=== PATIENT | male | born 1945 | race Caucasian/White ===

== ENCOUNTER 2021-02-25 11:20 | Emergency (ER) | payer OTHER ==
--- NOTE | 2021-02-25 13:13 | RAD REPORT ---
EXAM DESCRIPTION: RAD - Chest Single View - 02/25/2021 12:54 pm CLINICAL HISTORY: CHEST PAIN COMPARISON: No comparisons FINDINGS: Lines: Left upper chest wall pacemaker. Lungs: No evidence of edema or pneumonia. Pleural: No significant pleural effusions or pneumothorax. Cardiac: Moderate Cardiomegaly. Bones: No acute fractures. Other: ACDF in the cervical spine. IMPRESSION: No acute cardiopulmonary disease. Moderate cardiomegaly .
[2021-02-25 13:20] LABS: Protime INR 1.75
[2021-02-25 13:22] LABS: Absolute Lymphocytes (CBC) 1.4 K/uL (0.7-4.9); Hematocrit 33.9 % (39.6-49.0); Lymphocytes % 28.7 % (15.3-44.8); MPV 8.3 fL (7.6-11.3)
[2021-02-25 13:35] LABS: ALT/SGPT 14 U/L (12-78); AST/SGOT 9 U/L (15-37); Albumin 3.4 g/dL (3.4-5.0); Alkaline Phosphatase 133 U/L (45-117); BUN Blood Urea Nitrogen 37 mg/dL (7-18); Bicarbonate 28 mmol/L (21-32); Bilirubin Direct 0.2 mg/dL (0-0.2); Bilirubin Total 0.5 mg/dL (0.2-1.0); Glucose Level 219 mg/dL (74-106); Magnesium 1.6 mg/dL (1.8-2.4); NT PRO-BNP 426 pg/mL (<450); Potassium 4.7 mmol/L (3.5-5.1); Protein, Total 6.5 g/dL (6.4-8.2); Sodium Level 137 mmol/L (136-145); Troponin (Emerg Dept Use Only) < 0.02 ng/mL (0.0-0.045)
--- NOTE | 2021-02-25 16:44 | ER ---
Nurse's Notes [facility] Name: Eloy Gonzalez Age: 75 yrs Sex: Male : 1945 Arrival Date: 02/25/2021 Time: 11:23 Bed 12 Private MD: Loly Saez Diagnosis: Weakness;Muscle weakness (generalized);Other malaise and fatigue;SARS-associated coronavirus as the cause of diseases classified elsewhere Presentation: 02/25 11:40 Chief complaint: Patient states: Dr. Huston at [facility] sent me here tw2 because they didn't like my blood pressure today. i have been feeling bad for 2 or 3 days. no energy. just want to sleep. Coronavirus screen: fatigue, Client presents with at least one sign or symptom that may indicate coronavirus-19. Standard/surgical mask placed on the client. Provider contacted for isolation considerations. Ebola Screen: Patient denies travel to an Ebola-affected area in the 21 days before illness onset. Initial Sepsis Screen: Does the patient meet any 2 criteria? No. Patient's initial sepsis screen is negative. Does the patient have a suspected source of infection? No. Patient's initial sepsis screen is negative. Risk Assessment: Do you want to hurt yourself or someone else? Patient reports no desire to harm self or others. Onset of symptoms was February 25, 2021. 11:40 Method Of Arrival: Ambulatory tw2 11:45 Acuity: HAZEL 3 tw2 Triage Assessment: 11:44 General: Appears in no apparent distress. obese, Behavior is calm, cooperative, tw2 appropriate for age. Pain: Denies pain. Historical: - Allergies: 11:42 No Known Allergies; tw2 - PSHx: 11:42 back surgery; bypass; neck surgery; Appendectomy; Cholecystectomy; hernia repair; tw2 11:45 pacemaker; tw2 - Immunization history:: Client reports receiving the 2nd dose of the Covid vaccine. - Social history:: Smoking status: . Screenin:10 Abuse screen: Denies threats or abuse. Denies injuries from another. Nutritional ld1 screening: No deficits noted. On. Tuberculosis screening: No symptoms or risk factors identified. Fall Risk None identified. Assessment: 12:10 General: Appears in no apparent distress. comfortable, Behavior is calm, cooperative, ld1 appropriate for age. Pain: Denies pain. Neuro: Level of Consciousness is awake, alert, obeys commands, Oriented to person, place, time, situation, Appropriate for age. Cardiovascular: Capillary refill < 3 seconds Patient's skin is warm and dry. Respiratory: Airway is patent Respiratory effort is even, unlabored, Respiratory pattern is regular, symmetrical. GI: Abdomen is round non-distended. : No signs and/or symptoms were reported regarding the genitourinary system. Reports stage 4 kidney disease. EENT: No signs and/or symptoms were reported regarding the EENT system. Derm: No signs and/or symptoms reported regarding the dermatologic system. Musculoskeletal: No signs and/or symptoms reported regarding the musculoskeletal system. 13:30 Reassessment: Patient appears in no apparent distress at this time. Patient is alert, ld1 oriented x 3, equal unlabored respirations, skin warm/dry/pink. Patient denies pain at this time. 14:51 Reassessment: Patient appears in no apparent distress at this time. No changes from ld1 previously documented assessment. Patient and/or family updated on plan of care and expected duration. Pain level reassessed. Patient is alert, oriented x 3, equal unlabored respirations, skin warm/dry/pink. Patient denies pain at this time. 16:02 Reassessment: Patient appears in no apparent distress at this time. No changes from ld1 previously documented assessment. Patient and/or family updated on plan of care and expected duration. Pain level reassessed. Patient is alert, oriented x 3, equal unlabored respirations, skin warm/dry/pink. 17:21 Reassessment: Patient appears in no apparent distress at this time. No changes from ld1 previously documented assessment. Patient and/or family updated on plan of care and expected duration. Pain level reassessed. Patient is alert, oriented x 3, equal unlabored respirations, skin warm/dry/pink. Vital Signs: 11:44 BP 119 / 66; Pulse 87; Resp 18; Temp 97.7(TE); Pulse Ox 97% on R/A; Weight 104.33 kg tw2 (R); 12:10 BP 129 / 71; Pulse 68; Resp 18; Pulse Ox 96% on R/A; Pain 0/10; ld1 13:30 BP 111 / 62; Pulse 62; Resp 18; Pulse Ox 97% on R/A; Pain 0/10; ld1 15:01 BP 128 / 79; Pulse 61; Resp 16; Pulse Ox 100% on R/A; Pain 0/10; ld1 16:02 BP 123 / 75; Pulse 59; Resp 18; Pulse Ox 100% on R/A; ld1 ED Course: 11:23 Patient arrived in ED. as 11:23 Se Salcido is Private Physician. as 11:23 Loly Saez is Private Physician. as 11:43 Arm band placed on right wrist. Patient placed in waiting room. tw2 11:45 Triage completed. tw2 12:07 Al Dorman MD is Attending Physician. kdr 12:10 Patient has correct armband on for positive identification. Bed in low position. Call ld1 light in reach. Side rails up X2. school lunch monitor on. Pulse ox on. NIBP on. Door closed. Noise minimized. Warm blanket given. 12:10 No provider procedures requiring assistance completed. ld1 12:54 XRAY Chest (1 view) In Process Unspecified. EDMS 13:00 Inserted saline lock: 20 gauge in left antecubital area, using aseptic technique. Blood kj1 collected. 13:05 Initial lab(s) drawn, by wi, sent to lab. kj1 16:42 Loly Saez is Referral Physician. kdr 17:21 IV discontinued, intact, bleeding controlled, No redness/swelling at site. ld1 Administered Medications: No medications were administered Outcome: 16:43 Discharge ordered by . kdr 17:21 Discharged to home ambulatory. ld1 17:21 Condition: stable 17:21 Discharge instructions given to patient, family, Instructed on discharge instructions, follow up and referral plans. Demonstrated understanding of instructions, follow-up care. 17:21 Patient left the ED. ld1 Signatures: Dispatcher [employer] EDMS Al Dorman MD MD kdr Eliane Yu as Padmini Doe, RN RN 2 [place] Martinez kj1 Kristin Joyce, PRECIOUS RN ld1 Corrections: (The following items were deleted from the chart) 13:19 13:05 CORONAVIRUS+MR.LAB.BRZ drawn and sent. kj1 EDMS 13:19 13:00 CORONAVIRUS+MR.LAB.BRZ drawn and sent. kj1 EDMS
--- NOTE | 2021-02-25 16:45 | EDPHYS ---
Physician Documentation [facility] Name: Eloy Gonzalez Age: 75 yrs Sex: Male : 1945 Arrival Date: 02/25/2021 Time: 11:23 Bed 12 Private MD: Loly Saez ED Physician Al Dorman HPI: 02/26 08:29 This 75 yrs old Male presents to ER via Ambulatory with complaints of Blood kdr Pressure Problem - low. 08:29 Patient states he has had general malaise for last few days he has had some changes in kdr his sense of taste and smell. He went to an urgent care prior to his arrival here was noted to be hypotensive. He has no other focal complaints. He is awake alert and appropriate.. Onset: The symptoms/episode began/occurred gradually, 3 day(s) ago. Severity of symptoms: At their worst the symptoms were mild in the emergency department the symptoms are unchanged. The patient has not experienced similar symptoms in the past. The patient has been recently seen by a physician: Patient was seen by nurse practitioner prior to arrival in the ED.. Historical: - Allergies: 02/25 11:42 No Known Allergies; tw2 - PSHx: 11:42 back surgery; bypass; neck surgery; Appendectomy; Cholecystectomy; hernia repair; tw2 11:45 pacemaker; tw2 - Immunization history:: Client reports receiving the 2nd dose of the Covid vaccine. - Social history:: Smoking status: . ROS: 02/26 08:29 Constitutional: Negative for fever, chills, and weight loss, only general malaise and kdr altered sense of smell and taste Eyes: Negative for injury, pain, redness, and discharge, ENT: Negative for injury, pain, and discharge, Neck: Negative for injury, pain, and swelling, Cardiovascular: Negative for chest pain, palpitations, and edema, Respiratory: Negative for shortness of breath, cough, wheezing, and pleuritic chest pain, Abdomen/GI: Negative for abdominal pain, nausea, vomiting, diarrhea, and constipation, Back: Negative for injury and pain, : Negative for injury, bleeding, discharge, and swelling, MS/Extremity: Negative for injury and deformity, Skin: Negative for injury, rash, and discoloration, Neuro: Negative for headache, weakness, numbness, tingling, and seizure activity. Psych: Negative for depression, anxiety, suicide ideation, homicidal ideation, and hallucinations, Allergy/Immunology: Negative for hives, rash, and allergies, Endocrine: Negative for neck swelling, polydipsia, polyuria, polyphagia, and marked weight changes, Hematologic/Lymphatic: Negative for swollen nodes, abnormal bleeding, and unusual bruising. Exam: 08:29 Constitutional: This is a well developed, well nourished patient who is awake, alert, kdr and in no acute distress. Head/Face: Normocephalic, atraumatic. Eyes: Pupils equal round and reactive to light, extra-ocular motions intact. Lids and lashes normal. Conjunctiva and sclera are non-icteric and not injected. Cornea within normal limits. Periorbital areas with no swelling, redness, or edema. Neck: Trachea midline, no thyromegaly or masses palpated, and no cervical lymphadenopathy. Supple, full range of motion without nuchal rigidity, or vertebral point tenderness. No Meningismus. Chest/axilla: Normal chest wall appearance and motion. Nontender with no deformity. No lesions are appreciated. Cardiovascular: Regular rate and rhythm with a normal S1 and S2. No gallops, murmurs, or rubs. Normal PMI, no JVD. No pulse deficits. Respiratory: Lungs have equal breath sounds bilaterally, clear to auscultation and percussion. No rales, rhonchi or wheezes noted. No increased work of breathing, no retractions or nasal flaring. Abdomen/GI: Soft, non-tender, with normal bowel sounds. No distension or tympany. No guarding or rebound. No evidence of tenderness throughout. Back: No spinal tenderness. No costovertebral tenderness. Full range of motion. Skin: Warm, dry with normal turgor. Normal color with no rashes, no lesions, and no evidence of cellulitis. MS/ Extremity: Pulses equal, no cyanosis. Neurovascular intact. Full, normal range of motion. Neuro: Awake and alert, GCS 15, oriented to person, place, time, and situation. Cranial nerves II-XII grossly intact. Motor strength 5/5 in all extremities. Sensory grossly intact. Cerebellar exam normal. Normal gait. Psych: Awake, alert, with orientation to person, place and time. Behavior, mood, and affect are within normal limits. Vital Signs: 02/25 11:44 BP 119 / 66; Pulse 87; Resp 18; Temp 97.7(TE); Pulse Ox 97% on R/A; Weight 104.33 kg tw2 (R); 12:10 BP 129 / 71; Pulse 68; Resp 18; Pulse Ox 96% on R/A; Pain 0/10; ld1 13:30 BP 111 / 62; Pulse 62; Resp 18; Pulse Ox 97% on R/A; Pain 0/10; ld1 15:01 BP 128 / 79; Pulse 61; Resp 16; Pulse Ox 100% on R/A; Pain 0/10; ld1 16:02 BP 123 / 75; Pulse 59; Resp 18; Pulse Ox 100% on R/A; ld1 MDM: 16:43 Patient medically screened. kdr 02/26 08:29 Data reviewed: vital signs, nurses notes, lab test result(s), EKG, radiologic studies. kdr Counseling: I had a detailed discussion with the patient and/or guardian regarding: the historical points, exam findings, and any diagnostic results supporting the discharge/admit diagnosis, lab results, the need for outpatient follow up. Special discussion: I discussed with the patient/guardian in detail that at this point there is no indication for admission to the hospital. It is understood, however, that if the symptoms persist or worsen the patient needs to return immediately for re-evaluation. ED course: Patient remained stable in the emergency department. He did not appear toxic at any time and was otherwise stable. His blood pressure was within normal limits and not requiring any intervention. As can be seen from his laboratory evaluation, he was Covid positive. This would account for his symptoms. Patient was discharged in stable condition was happy with the care provided and the plan for discharge and follow-up.. 02/25 12:07 Order name: Basic Metabolic Panel; Complete Time: 15:13 kdr 02/25 12:07 Order name: CBC with Diff; Complete Time: 15:13 kdr 02/25 12:07 Order name: LFT's; Complete Time: 15:13 kdr 02/25 12:07 Order name: Magnesium; Complete Time: 15:13 kdr 02/25 12:07 Order name: NT PRO-BNP; Complete Time: 15:13 kdr 02/25 12:07 Order name: PT-INR; Complete Time: 15:13 kdr 02/25 12:07 Order name: Troponin (emerg Dept Use Only); Complete Time: 15:13 kdr 02/25 12:07 Order name: XRAY Chest (1 view); Complete Time: 15:13 kdr 02/25 12:07 Order name: EKG; Complete Time: 12:08 kdr 02/25 12:07 Order name: Cardiac monitoring; Complete Time: 13:30 kdr 02/25 12:07 Order name: EKG - Nurse/Tech; Complete Time: 12:39 kdr 02/25 14:39 Order name: SARS-COV-2 RT PCR; Complete Time: 15:13 EDMS 02/25 12:07 Order name: IV Saline Lock; Complete Time: 13:30 kdr 02/25 12:07 Order name: Labs collected and sent; Complete Time: 13:30 kdr 02/25 12:07 Order name: O2 Per Protocol; Complete Time: 12:10 kdr 02/25 12:07 Order name: O2 Sat Monitoring; Complete Time: 12:10 kdr Administered Medications: No medications were administered Disposition Summary: 02/25/21 16:43 Discharge Ordered Location: Home kdr Problem: new kdr Symptoms: have improved kdr Condition: Stable kdr Diagnosis - Weakness kdr - Muscle weakness (generalized) kdr - Other malaise and fatigue kdr - SARS-associated coronavirus as the cause of diseases classified elsewhere kdr Followup: kdr - With: Loly Saez - When: 2 - 3 days - Reason: If symptoms return, Further diagnostic work-up, Recheck today's complaints, Continuance of care, Re-evaluation by your physician Discharge Instructions: - Discharge Summary Sheet kdr - Fatigue kdr - Weakness, [id number] kdr - COVID-19 kdr - Things to Know about the COVID-19 Pandemic - [facility] kdr - 10 Things You Can Do to Manage Your COVID-19 Symptoms at Home - [facility] kdr - COVID-19: Quarantine vs. Isolation - CDC kdr - Prevent the Spread of COVID-19 if You Are Sick - [facility] kdr Forms: - Medication Reconciliation Form kdr - Thank You Letter kdr Signatures: Dispatcher [employer] Al Beth MD MD kdr Padmini Doe RN RN tw2 Corrections: (The following items were deleted from the chart) 02/25 13:19 13:00 CORONAVIRUS+MR.LAB.BRZ ordered. EDMS EDMS
[2021-02-25 18:04] VITALS: TEMP 97.7
[2021-02-25 18:14] VITALS: O2SAT 100
[2021-02-25 18:15] VITALS: BP 123/75
== END 2021-02-25 17:21 | disposition home or self-care (01) ==
LOC: ER 11:20
DX: U07.1 COVID-19 (principal); R53.81 Other malaise; R53.83 Other fatigue; M62.81 Muscle weakness (generalized); Z95.0 Presence of cardiac pacemaker
CPT/HCPCS: 93005; 85025; 80048; 36415; 83735; 85610; 80076; 84484; 83880; 71045; 99284; U0003

== ENCOUNTER 2021-08-29 17:40 | Observation (INO) | payer MEDICARE, OTHER ==
[2021-08-29] MEDS ORDERED: ONDANSETRON 4 MG/2 ML VIAL ONE (18:39)
[2021-08-29] MEDS ORDERED: MORPHINE 4 MG/ML SYR ONE (18:39)
[2021-08-29] MEDS ORDERED: ASPIRIN 81 MG CHEWABLE TABLET ONE (18:40)
[2021-08-29 18:46] LABS: Absolute Lymphocytes (CBC) 1.3 K/uL (0.7-4.9); Hematocrit 31.7 % (39.6-49.0); Lymphocytes % 23.8 % (15.3-44.8); MPV 8.4 fL (7.6-11.3); RBC Red Blood Cell Count 3.62 M/uL (4.33-5.43)
[2021-08-29 18:51] LABS: Protime INR 1.55
--- NOTE | 2021-08-29 18:59 | RAD REPORT ---
EXAM DESCRIPTION: RAD - Chest Single View - 08/29/2021 6:44 pm CLINICAL HISTORY: CHEST PAIN COMPARISON: Chest Single View dated 02/25/2021 FINDINGS: Lines: Pacemaker. Lungs: No evidence of edema or pneumonia. Increased left perihilar markings similar to 02/25/2021. Pleural: No significant pleural effusions or pneumothorax. Cardiac: Moderate cardiomegaly. Bones: No acute fractures. ACDF in the cervical spine. Other: IMPRESSION: No acute cardiopulmonary disease. No significant change compared with 02/25/2021.
[2021-08-29 19:05] LABS: Albumin 3.2 g/dL (3.4-5.0); Bilirubin Direct 0.2 mg/dL (0-0.2); Bilirubin Total 0.7 mg/dL (0.2-1.0); Magnesium 1.9 mg/dL (1.8-2.4); Potassium 4.3 mmol/L (3.5-5.1); Protein, Total 6.9 g/dL (6.4-8.2); Troponin High Sensitivity 14.3 pg/mL (<58.9)
--- NOTE | 2021-08-29 19:32 | EDPHYS ---
Physician Documentation [facility] Name: Eloy Gonzalez Age: 76 yrs Sex: Male : 1945 Arrival Date: 08/29/2021 Time: 17:44 Bed 4 Private MD: ED Physician Jarod Khan HPI: 08/29 19:18 This 76 yrs old Male presents to ER via EMS with complaints of Chest Pain. andrez 19:18 The patient or guardian reports chest pain that is located primarily in the anterior andrez chest wall, left. Onset: 1 day(s) ago. The pain does not radiate. Associated signs and symptoms: Pertinent positives: shortness of breath. The chest pain is described as a pressure. Duration: The patient or guardian reports multiple episodes, with no pattern. Modifying factors: The symptoms are alleviated by nothing. the symptoms are aggravated by nothing. Severity of pain: At its worst the pain was mild in the emergency department the pain is unchanged. The patient has not experienced similar symptoms in the past. Historical: - Allergies: 18:07 No Known Allergies; ph - PMHx: 18:07 Congestive heart failure; COPD; pacemaker/defibrillator; Atrial fibrillation; Cancer, ph renal stage 2; Diabetes mellitus; GERD; - PSHx: 18:07 Appendectomy; back surgery; Cholecystectomy; bypass; neck surgery; hernia repair; ph pacemaker; - Immunization history:: Client reports receiving the 2nd dose of the Covid vaccine. - Social history:: Smoking status: Patient denies any tobacco usage or history of. - Family history:: not pertinent. ROS: 19:18 Constitutional: Negative for fever, chills, and weight loss, Eyes: Negative for injury, andrez pain, redness, and discharge, ENT: Negative for injury, pain, and discharge, Neck: Negative for injury, pain, and swelling, Respiratory: Negative for shortness of breath, cough, wheezing, and pleuritic chest pain, Abdomen/GI: Negative for abdominal pain, nausea, vomiting, diarrhea, and constipation, Back: Negative for injury and pain, : Negative for injury, bleeding, discharge, and swelling, MS/Extremity: Negative for injury and deformity, Skin: Negative for injury, rash, and discoloration, Neuro: Negative for headache, weakness, numbness, tingling, and seizure, Psych: Negative for depression, anxiety, suicide ideation, homicidal ideation, and hallucinations, Allergy/Immunology: Negative for hives, rash, and allergies, Endocrine: Negative for neck swelling, polydipsia, polyuria, polyphagia, and marked weight changes, Hematologic/Lymphatic: Negative for swollen nodes, abnormal bleeding, and unusual bruising. 19:18 Cardiovascular: Positive for chest pain, of the left supraclavicular area, left clavicle and anterior aspect of left upper chest. Exam: 19:18 Constitutional: This is a well developed, well nourished patient who is awake, alert, andrez and in no acute distress. Head/Face: Normocephalic, atraumatic. Eyes: Pupils equal round and reactive to light, extra-ocular motions intact. Lids and lashes normal. Conjunctiva and sclera are non-icteric and not injected. Cornea within normal limits. Periorbital areas with no swelling, redness, or edema. ENT: Nares patent. No nasal discharge, no septal abnormalities noted. Tympanic membranes are normal and external auditory canals are clear. Oropharynx with no redness, swelling, or masses, exudates, or evidence of obstruction, uvula midline. Mucous membranes moist. Neck: Trachea midline, no thyromegaly or masses palpated, and no cervical lymphadenopathy. Supple, full range of motion without nuchal rigidity, or vertebral point tenderness. No Meningismus. Chest/axilla: Normal chest wall appearance and motion. Nontender with no deformity. No lesions are appreciated. Cardiovascular: Regular rate and rhythm with a normal S1 and S2. No gallops, murmurs, or rubs. Normal PMI, no JVD. No pulse deficits. Respiratory: Lungs have equal breath sounds bilaterally, clear to auscultation and percussion. No rales, rhonchi or wheezes noted. No increased work of breathing, no retractions or nasal flaring. Abdomen/GI: Soft, non-tender, with normal bowel sounds. No distension or tympany. No guarding or rebound. No evidence of tenderness throughout. Back: No spinal tenderness. No costovertebral tenderness. Full range of motion. Male : Normal genitalia with no discharge or lesions. Skin: Warm, dry with normal turgor. Normal color with no rashes, no lesions, and no evidence of cellulitis. MS/ Extremity: Pulses equal, no cyanosis. Neurovascular intact. Full, normal range of motion. Neuro: Awake and alert, GCS 15, oriented to person, place, time, and situation. Cranial nerves II-XII grossly intact. Motor strength 5/5 in all extremities. Sensory grossly intact. Cerebellar exam normal. Normal gait. Psych: Awake, alert, with orientation to person, place and time. Behavior, mood, and affect are within normal limits. 19:25 ECG was reviewed by the Attending Physician. andrez Vital Signs: 18:03 BP 121 / 73; Pulse 63; Resp 13; Temp 97.7; Pulse Ox 96% on R/A; Weight 108.86 kg; ph Height 5 ft. 7 in. (170.18 cm); 18:53 BP 121 / 73; Pulse 61; Resp 18; Pulse Ox 94% on R/A; ph 20:00 BP 122 / 72; Pulse 59; Resp 16; Pulse Ox 96% on R/A; sm5 21:00 BP 106 / 65; Pulse 61; Resp 15; Pulse Ox 92% on R/A; sm5 22:00 BP 126 / 65; Pulse 76; Resp 19; Pulse Ox 94% on R/A; sm5 23:07 BP 135 / 69; Pulse 68; Resp 18; Pulse Ox 97% on R/A; sm5 18:03 Body Mass Index 37.59 (108.86 kg, 170.18 cm) ph MDM: 17:52 Patient medically screened. andrez 19:22 Differential diagnosis: abnormal EKG, acute myocardial infarction, acute pericarditis, andrez anxiety, coronary artery disease chest wall pain, gastroesophageal reflux disease (GERD), hiatal hernia, pancreatitis, peptic ulcer disease, pericarditis, stable angina, unstable angina. HEART Score: History: Moderately Suspicious (1), ECG: Non specific repolarization disturbance / LBTB / PM (1), Age: > or = 65 years (2), Risk Factors: > or = 3 Risk factors for atherosclerotic disease (2), [Hypercholesterolemia] [Hypertension] [+ Family HX] [Obesity] Troponin: < or = 1 x Normal Limit (0). The patient was not given aspirin in the Emergency Department. Not indicated due to patient's past medical history. The patient's deep vein thrombosis risk score was calculated as follows: Total Score: 0. This patient was found to be at low risk for a deep vein thrombosis by using the Well's assessment criteria. The patient's pulmonary embolism risk score was calculated as follows: Total Score: 0-2 points. This patient was found to be at low risk for a pulmonary embolism by using the Well's assessment criteria. STAN Risk Score: TOTAL SCORE = 0. Data reviewed: vital signs, nurses notes, lab test result(s), EKG, radiologic studies, plain films. Data interpreted: psychology lecturer: rate is 61 beats/min, rhythm is regular, Pulse oximetry: on room air is 94 %. Test interpretation: by ED physician or midlevel provider: ECG, plain radiologic studies. Counseling: I had a detailed discussion with the patient and/or guardian regarding: the historical points, exam findings, and any diagnostic results supporting the discharge/admit diagnosis, the presence of at least one elevated blood pressure reading (>120/80) during this emergency department visit, lab results, radiology results, the need for further work-up and treatment in the hospital. 19:26 Other consultation: DR Farrukh CHENG , ADMIT HERE INTERROGATE PM, CALL IF NEEDED, CONTINUE andrez ALL MEDS. 08/29 17:53 Order name: Basic Metabolic Panel [facility] 08/29 17:53 Order name: CBC with Diff [facility] 08/29 17:53 Order name: LFT's; Complete Time: 19:27 andrez 08/29 17:53 Order name: Magnesium; Complete Time: 19:27 andrez 08/29 17:53 Order name: NT PRO-BNP; Complete Time: 19:27 andrez 08/29 17:53 Order name: PT-INR; Complete Time: 19:00 andrez 08/29 17:53 Order name: Troponin HS; Complete Time: 19:27 andrez 08/29 17:53 Order name: XRAY Chest (1 view); Complete Time: 19:00 andrez 08/29 17:53 Order name: Lipase; Complete Time: 19:27 andrez 08/29 17:53 Order name: SARS-COV-2 RT PCR (Document "Date of Onset" if Symptomatic); Complete Time: andrez 19:42 08/29 17:54 Order name: Basic Metabolic Panel; Complete Time: 19:27 EDMS 08/29 17:54 Order name: CBC with Automated Diff; Complete Time: 19:00 EDAK 08/29 17:53 Order name: EKG; Complete Time: 17:55 andrez 08/29 17:53 Order name: Cardiac monitoring; Complete Time: 18:16 [facility] 08/29 17:53 Order name: EKG - Nurse/Tech; Complete Time: 19:17 [facility] 08/29 17:53 Order name: IV Saline Lock; Complete Time: 18:37 [facility] 08/29 17:53 Order name: Labs collected and sent; Complete Time: 18:37 [facility] 08/29 17:53 Order name: O2 Per Protocol; Complete Time: 18:16 [facility] 08/29 17:53 Order name: O2 Sat Monitoring; Complete Time: 18:16 andrez EC:25 Rate is 60 beats/min. Rhythm is regular. QRS Burley is Normal. LA interval is normal. QRS andrez interval is normal. QT interval is normal. No Q waves. T waves are Normal. No ST changes noted. Clinical impression: NSR w/ Non-specific ST/T Changes and No evidence of ischemia. Interpreted by me. Reviewed by me. Administered Medications: 17:50 Drug: Zofran (Ondansetron) 4 mg Route: IVP; Site: left antecubital; ph 19:23 Follow up: Response: No adverse reaction ph 17:52 Drug: morphine 4 mg Route: IVP; Site: left antecubital; ph 19:22 Follow up: Response: No adverse reaction ph 18:52 Not Given (Physician Discretion): Aspirin Chewable Tablet 324 mg PO once; 81 mg tablets ph x 4 19:28 Not Given (Duplicate Order): NS 0.9% 1000 ml IV at 125 ml/hr continuous andrez 19:47 Drug: Lasix (furosemide) 40 mg Route: IVP; Site: left antecubital; sm5 Disposition Summary: 08/29/21 19:31 Hospitalization Ordered Hospitalization Status: Observation andrez Provider: Sergio Gu cha Location: Telemetry/MedSurg (observation) andrez Condition: Fair andrez Problem: new andrez Symptoms: have improved andrez Bed/Room Type: Standard [facility] Room Assignment: 404(08/29/21 20:53) mw Diagnosis - Chest pain, unspecified andrez - Obesity, unspecified andrez - Presence of cardiac pacemaker andrez - Presence of automatic (implantable) cardiac defibrillator andrez - Encounter for adjustment and management of automatic implantable cardiac andrez defibrillator - Chronic kidney disease, stage 3 (moderate) andrez - COPD/ Chronic obstructive pulmonary disease, unspecified andrez Forms: - Medication Reconciliation Form andrez - SBAR form [facility] Signatures: Dispatcher [employer] EDJulia Moe RN RN mw Anderson, Corey, MD MD cha Hall, Patricia, RN RN Ursula Hughes RN RN sm5 Brown, Sophia, PA PA sb3 Corrections: (The following items were deleted from the chart) 20:53 19:31 andrez zarco
--- NOTE | 2021-08-29 19:32 | ER ---
Nurse's Notes [facility] Name: Eloy Gonzalez Age: 76 yrs Sex: Male : 1945 Arrival Date: 08/29/2021 Time: 17:44 Bed 4 Private MD: Diagnosis: Chest pain, unspecified;Obesity, unspecified;Presence of cardiac pacemaker;Presence of automatic (implantable) cardiac defibrillator;Encounter for adjustment and management of automatic implantable cardiac defibrillator;Chronic kidney disease, stage 3 (moderate);COPD/ Chronic obstructive pulmonary disease, unspecified Presentation: 08/29 18:03 Chief complaint: EMS states: Pt c/o chest pain that started yesterday, has a ph pacemaker/defibrillator and reports that it shocked him yesterday. Describes chest pain as sharp and stabbing, L side of chest, radiates to L arm and L leg. Also reports mild SOB and nausea. Hx of COPD, CHF, stage 2 renal cancer, VSS. Coronavirus screen: Vaccine status: Patient reports receiving the 2nd dose of the covid vaccine. At this time, the client does not indicate any symptoms associated with coronavirus-19. Ebola Screen: No symptoms or risks identified at this time. Initial Sepsis Screen: Does the patient meet any 2 criteria? No. Patient's initial sepsis screen is negative. Does the patient have a suspected source of infection? No. Patient's initial sepsis screen is negative. Risk Assessment: Do you want to hurt yourself or someone else? Patient reports no desire to harm self or others. Onset of symptoms was August 29, 2021. 18:03 Method Of Arrival: EMS: [facility] [place] ph 18:03 Acuity: HAZEL 3 ph Triage Assessment: 18:11 General: Appears in no apparent distress. comfortable, well groomed, Behavior is calm, ph cooperative, appropriate for age, Denies fever. Pain: Complains of pain in anterior aspect of left upper chest Pain radiates to left arm and left leg. Neuro: Level of Consciousness is awake, alert, obeys commands, Oriented to person, place, time, situation. Cardiovascular: Reports chest pain, nausea, shortness of breath, Denies diaphoresis, lightheadedness, palpitations, syncope, vomiting, Capillary refill < 3 seconds in bilateral fingers Patient's skin is warm and dry. Edema is 2+ to left midcalf, left ankle, right midcalf and right ankle pitting to left ankle and right ankle Rhythm is atrial pacer Chest pain quality is sharp, stabbing, is located in left anterior chest wall radiates to left arm(s) began 1 day ago. Respiratory: Airway is patent Respiratory effort is even, unlabored, Respiratory pattern is regular, symmetrical. GI: No signs and/or symptoms were reported involving the gastrointestinal system. Derm: Skin is intact, Skin is pink, warm \T\ dry. Musculoskeletal: Circulation, motion, and sensation intact. Range of motion: intact in all extremities. Historical: - Allergies: 18:07 No Known Allergies; ph - PMHx: 18:07 Congestive heart failure; COPD; pacemaker/defibrillator; Atrial fibrillation; Cancer, ph renal stage 2; Diabetes mellitus; GERD; - PSHx: 18:07 Appendectomy; back surgery; Cholecystectomy; bypass; neck surgery; hernia repair; ph pacemaker; - Immunization history:: Client reports receiving the 2nd dose of the Covid vaccine. - Social history:: Smoking status: Patient denies any tobacco usage or history of. - Family history:: not pertinent. Screenin:10 Abuse screen: Denies threats or abuse. Denies injuries from another. Nutritional ph screening: No deficits noted. Tuberculosis screening: No symptoms or risk factors identified. Fall Risk None identified. Assessment: 18:15 General: SEE TRIAGE ASSESSMENT. ph 19:00 Reassessment: Patient appears in no apparent distress at this time. Patient and/or ph family updated on plan of care and expected duration. Pain level reassessed. Patient is alert, oriented x 3, equal unlabored respirations, skin warm/dry/pink. 20:00 General: Appears in no apparent distress. Behavior is cooperative, appropriate for age. sm5 Pain: Denies pain. Pain began denying pain at this time. Neuro: No deficits noted. Level of Consciousness is awake, alert, obeys commands, Oriented to person, place, time, situation. Cardiovascular: Reports bilateral lower extremity edema Capillary refill < 3 seconds Patient's skin is warm and dry. Respiratory: No deficits noted. Airway is patent Trachea midline Respiratory effort is even, unlabored. 21:03 Reassessment: No changes from previously documented assessment. Patient and/or family sm5 updated on plan of care and expected duration. Pain level reassessed. 22:07 Reassessment: No changes from previously documented assessment. sm5 23:09 Reassessment: Patient and/or family updated on plan of care and expected duration. Pain sm5 level reassessed. Patient is alert, oriented x 3, equal unlabored respirations, skin warm/dry/pink. Vital Signs: 18:03 BP 121 / 73; Pulse 63; Resp 13; Temp 97.7; Pulse Ox 96% on R/A; Weight 108.86 kg; ph Height 5 ft. 7 in. (170.18 cm); 18:53 BP 121 / 73; Pulse 61; Resp 18; Pulse Ox 94% on R/A; ph 20:00 BP 122 / 72; Pulse 59; Resp 16; Pulse Ox 96% on R/A; sm5 21:00 BP 106 / 65; Pulse 61; Resp 15; Pulse Ox 92% on R/A; sm5 22:00 BP 126 / 65; Pulse 76; Resp 19; Pulse Ox 94% on R/A; sm5 23:07 BP 135 / 69; Pulse 68; Resp 18; Pulse Ox 97% on R/A; sm5 18:03 Body Mass Index 37.59 (108.86 kg, 170.18 cm) ph ED Course: 17:44 Patient arrived in ED. ds1 17:45 Initial lab(s) drawn, by me, sent to lab. Inserted saline lock: 22 gauge in left ph antecubital area, using aseptic technique. Blood collected. 17:52 Jarod Khan MD is Attending Physician. andrez 18:03 Tatyana Pa RN is Primary Nurse. ph 18:07 Triage completed. ph 18:10 Arm band placed on Patient placed in an exam room, on a stretcher, on manager cardiac cath, ph on pulse oximetry. 18:14 Patient has correct armband on for positive identification. Placed in gown. Bed in low ph position. Call light in reach. Side rails up X2. groundwater monitoring technician on. Pulse ox on. NIBP on. Door closed. Noise minimized. Warm blanket given. 18:15 Patient maintains SpO2 saturation greater than 95% on room air. ph 18:23 COVID swab sent to lab. ww 18:44 XRAY Chest (1 view) In Process Unspecified. EDMS 19:29 Sergio Gu is Hospitalizing Provider. andrez 20:31 Basic Metabolic Panel Sent. [facility] 20:31 CBC with Diff Sent. [facility] 23:09 No provider procedures requiring assistance completed. Patient admitted, IV remains in [facility] place. Administered Medications: 17:50 Drug: Zofran (Ondansetron) 4 mg Route: IVP; Site: left antecubital; ph 19:23 Follow up: Response: No adverse reaction ph 17:52 Drug: morphine 4 mg Route: IVP; Site: left antecubital; ph 19:22 Follow up: Response: No adverse reaction ph 18:52 Not Given (Physician Discretion): Aspirin Chewable Tablet 324 mg PO once; 81 mg tablets ph x 4 19:28 Not Given (Duplicate Order): NS 0.9% 1000 ml IV at 125 ml/hr continuous [facility] 19:47 Drug: Lasix (furosemide) 40 mg Route: IVP; Site: left antecubital; [facility] Outcome: 19:31 Decision to Hospitalize by Provider. [facility] 23:09 Admitted to Med/surg accompanied by nurse, via stretcher, with chart, Report called to [facility] bedside report given 23:09 Condition: stable 23:09 Instructed on the need for admit. 23:10 Patient [address] the ED[address] [facility] Signatures: Dispatcher [employer] EDMS Jarod Khan MD MD cha Sanford, Demi ds1 Tatyana Pa RN RN Ursula Higgins RN RN [facility] Vannessa Womack RN RN edward
[2021-08-29] MEDS ORDERED: FUROSEMIDE 40 MG/4 ML VIAL ONE (19:37)
--- NOTE | 2021-08-29 20:48 | P.HP ---
Certification for Inpatient Patient admitted to: Observation With expected LOS: <2 Midnights Patient will require the following post-hospital care: None Practitioner: I am a practitioner with admitting privileges, knowledge of patient current condition, hospital course, and medical plan of care. Services: Services provided to patient in accordance with Admission requirements found in Title 42 Section 412.3 of the Code of Federal Regulations Patient History Date of Service: 08/29/21 Reason for admission: Chest pain History of Present Illness: Patient is a 76-year-old male with CHF, COPD, hypertension, CAD, stage II renal cancer, stage III chronic kidney disease, type 2 diabetes mellitus insulin-dependent, and A. fib (on xarelto) who presented to the ED with complaints of chest pain. He states the chest pain started yesterday after being outside and his pacemaker ended up firing. He describes the chest pain as pressure, sharp, stabbing in the left side of his chest and it radiates to his left arm and leg. It is associated with mild shortness of breath, nausea, and weakness. Patient also feels like his lungs have fluid on them. Patient's dryer operator is Dr. Manrique. Patient reports he is not undergoing treatment for his stage II renal cancer and is a DNR. Patient reports this is his third pacemaker. In the ED labs were significant for creatinine 3.57, GFR 17, BUN 66, proBNP 1173, troponin negative at 14. Chest x-ray showed no acute cardiopulmonary disease or significant change compared to previous chest x-ray. EKG showed atrial paced rhythm with prolonged AV conduction but no ST abnormalities. Patient was given morphine, Zofran, and Lasix in the ED. upon my assessment, patient states his chest pain has improved but he feels weak. We will admit patient for observation with cardiology consulting. Home medications list reviewed: Yes - Past Medical/Surgical History Diabetic: Yes -: CHF -: COPD -: Stage II renal cancer -: Chronic kidney disease stage III -: Type 2 diabetes insulin-dependent -: A. fib -: Hypertension -: Bypass -: Pacemaker x3 -: Appendectomy -: Cholecystectomy -: Hernia repair Psychosocial/ Personal History: Patient lives at home with his - Family History Father -: Heart disease Mother -: Diabetes, Cancer Sister -: Heart disease, Diabetes - Social History Smoking Status: Never smoker Alcohol use: No CD- Drugs: No Place of Residence: Home Review of Systems General: Weakness Respiratory: Shortness of Breath, SOB with Excertion Cardiovascular: Chest Pain, Edema Gastrointestinal: Nausea, Distention Physical Examination - Physical Exam General: Alert, In no apparent distress HEENT: Atraumatic, PERRLA, Mucous membr. moist/pink, EOMI, Sclerae nonicteric Neck: Supple, 2+ carotid pulse no bruit, No LAD, Without JVD or thyroid abnormality Respiratory: Clear to auscultation bilaterally, Normal air movement Cardiovascular: Edema (1+ pitting edema), Irregular heart rate/rhythm Gastrointestinal: Normal bowel sounds, No tenderness, Other (Mildly distended) Musculoskeletal: No tenderness Integumentary: No rashes Neurological: Normal speech, Normal strength at 5/5 x4 extr, Normal tone, Normal affect - Studies Laboratory Data (last 24 hrs) 08/29/21 18:30: PT 17.2 H, INR 1.55 08/29/21 18:30: WBC 5.70, Hgb 11.1 L, Hct 31.7 L, Plt Count 191 08/29/21 18:30: Sodium 135 L, Potassium 4.3, BUN 66 H, Creatinine 3.57 H, Glucose 252 H, Magnesium 1.9, Total Bilirubin 0.7, AST 12 L, ALT 14, Alkaline Phosphatase 144 H, Lipase 165 Assessment and Plan - Problems (Diagnosis) (1) Chest pain due to CAD Current Visit: Yes Status: Acute (2) COPD (chronic obstructive pulmonary disease) Current Visit: No Status: Chronic Qualifiers: COPD type: unspecified COPD Qualified Code(s): J44.9 - Chronic obstructive pulmonary disease, unspecified (3) CHF (congestive heart failure) Current Visit: Yes Status: Chronic Qualifiers: Heart failure type: unspecified Heart failure chronicity: chronic Qualified Code(s): I50.9 - Heart failure, unspecified (4) Pacemaker Current Visit: Yes Status: Chronic (5) Chronic kidney disease, stage III (moderate) Current Visit: Yes Status: Chronic Qualifiers: Chronic kidney disease stage 3 subtype: stage 3b (GFR 30-44) Qualified Code(s): N18.32 - Chronic kidney disease, stage 3b (6) Renal cancer Current Visit: Yes Status: Chronic Qualifiers: Laterality: unspecified laterality Qualified Code(s): C64.9 - Malignant neoplasm of unspecified kidney, except renal pelvis (7) A-fib Current Visit: Yes Status: Chronic Qualifiers: Atrial fibrillation type: unspecified chronic Qualified Code(s): I48.20 - Chronic atrial fibrillation, unspecified; I48.2 - Chronic atrial fibrillation (8) Diabetes mellitus type 2, insulin dependent Current Visit: Yes Status: Chronic - Plan -Patient's chest pain has subsided at this time after morphine. We will continue to monitor overnight on telemetry. Patient's EKG and initial troponin were negative. Will repeat troponin every 6x2 -aspirin, atorvastatin, and cardiology consult. Patient reports he is scheduled to see Dr. Manrique next week. -We will continue necessary home medications -Patient has CHF, unknown EF. He does take Lasix and has some pitting edema in his lower extremities. Given 1 IV dose of Lasix in the ED. We will continue as needed. -Patient has chronic A. fib and takes Xarelto. Will continue. -Patient has stage II renal cancer and stage III chronic kidney disease. He states that he is not undergoing treatment. Creatinine was elevated at 3.57 and BUN at 66. Unsure of patient's baseline. Patient does see nephrology in [place] but cannot remember the name of his international trade specialist. -Patient has COPD. Denies history of smoking. Was having some shortness of breath but denies at this time. Breathing treatments and oxygen as needed -Patient is type 2 insulin-dependent diabetic. Glucose was 252 in the ED. Ordered moderate sliding scale insulin DVT PPx: Xarelto Code: DNR. Patient is completely competent in making this decision. Discharge Plan: Home Plan to discharge in: 24 Hours - Advance Directives Does patient have a Living Will: No Does patient have a Durable POA for Healthcare: No - Code Status/Comfort Care Code Status Assessed: Yes (DNR) Critical Care: No Time Spent Managing Pts Care (In Minutes): 70
[2021-08-29] MEDS ORDERED: ACETAMINOPHEN 500 MG TAB PO PRN (23:12)
[2021-08-29] MEDS ORDERED: ALBUTEROL 2.5 MG/3 ML NEB SOL NEB PRN (23:12)
[2021-08-29] MEDS ORDERED: ASPIRIN 81 MG CHEWABLE TABLET PO ONE (23:12)
[2021-08-29] MEDS ORDERED: MORPHINE 2 MG/ML SYR IV PRN (23:12)
[2021-08-29] MEDS ORDERED: ATORVASTATIN 40 MG TAB PO SCH (23:12)
[2021-08-29] MEDS ORDERED: ONDANSETRON 4 MG/2 ML VIAL IV PRN (23:12)
[2021-08-29] MEDS ORDERED: IPRATROPIUM BROM 0.5MG/2.5ML NEB PRN (23:12)
[2021-08-29 23:46] VITALS: BMI 36.6
[2021-08-29] MEDS: INSULIN -REGULAR HUMAN 50 UNIT/0.5 ML ML SQ SCH (23:58)
[2021-08-30 02:26] VITALS: O2SAT 94
[2021-08-30 05:35] LABS: Absolute Lymphocytes (CBC) 1.6 K/uL (0.7-4.9); Hematocrit 31.7 % (39.6-49.0); Lymphocytes % 31.9 % (15.3-44.8); MPV 8.6 fL (7.6-11.3); RBC Red Blood Cell Count 3.58 M/uL (4.33-5.43)
[2021-08-30 05:56] LABS: Albumin 3.2 g/dL (3.4-5.0); Bilirubin Total 0.6 mg/dL (0.2-1.0); Potassium 4.3 mmol/L (3.5-5.1); Protein, Total 6.9 g/dL (6.4-8.2); Thyroid Stimulating Hormone 0.123 uIU/mL (0.360-3.740); Troponin High Sensitivity 12.8 pg/mL (<58.9)
[2021-08-30] MEDS ORDERED: PNEUMOCOCCAL VACCINE 0.5 ML IMVAC ONE (08:00)
[2021-08-30] MEDS: INSULIN -REGULAR HUMAN 50 UNIT/0.5 ML ML SQ SCH ×3 (08:15→16:45)
[2021-08-30 08:21] LABS: Urine Appearance CLEAR (Clear); Urine Bilirubin NEGATIVE (Negative); Urine Blood NEGATIVE (Negative); Urine Color YELLOW (Yellow); Urine Glucose NEGATIVE (Negative); Urine Protein NEGATIVE (Negative)
[2021-08-30 08:31] LABS: Urine Microscopic Reflex NO UMIC
[2021-08-30] MEDS ORDERED: RIVAROXABAN 10 MG TABLET PO SCH ×2 (09:00)
--- NOTE | 2021-08-30 13:27 | CON ---
Date of Consultation: 08/30/2021 Reason For Consultation: Shortness of breath and chest pain. History Of Present Illness: Mr. Gonzalez is a 76-year-old white male. He was in the hospital here in March of 2021 and had a stress test showing no evidence of ischemia with a normal ejection fractio n. He does, however, has a history of congestive heart failure, pulmonary embolism, COPD, history of AICD, and biventricular pacemaker, atrial fibrillation, CABG, chronic renal disease, diabetes, and G ERD. He comes in with atypical chest pain mostly in the left shoulder, left elbow that has been jackie g on for a week without any nausea, vomiting, diaphoresis, PND, orthopnea, pedal edema, palpitations, or syncope. He has had some shortness of breath with exertion. Denied fever or chills. His AK has been already ruled out. His BNP is 943. Allergies: NONE. Social History: Positive for being a Do Not Resuscitate. Review of Systems: Negative. Medications: At home include Lipitor, allopurinol, Neurontin, potassium, insulin, metoprolol, Flomax , and Xarelto. Physical Examination: General: Very pleasant, slightly anxious. No acute distress, 100% paced rhythm. VITAL SIGNS: Afebrile. Vital signs stable. HEENT: Negative. Neck: Supple with no bruit. Chest: Reveals rales at the bases. Cardiac: Revealed a paced rhythm. No murmurs, gallops, or rubs. Abdomen: Benign. Extremities: Revealed no clubbing, cyanosis, or edema. Diagnostic Data: Showed a creatinine of 3.56, glucose was 211. TSH was 0.123. Impression And Plan: 1.Atypical chest pain, noncardiac in nature. 2.Shortness of breath. Echocardiogram should be done. 3.History of congestive heart failure, biventricular pacemaker, automated implantable cardioverter d efibrillator. He has close followup as an outpatient, so we can check his defibrillator and pacemake r. 4.History of pulmonary embolism and atrial fibrillation, on Xarelto. 5.Chronic obstructive pulmonary disease. 6.Diabetes. 7.Gastroesophageal reflux disease. 8.Severe renal insufficiency stage IV, may be heading towards dialysis. Nephrology should be involv ed, though we certainly cannot do any interventional cardiac workup on him along and his kidney funct ion does not get better or dealt with. He does have a Nephrology appointment coming up sometime next week. He does not remember whom it is that he will see, but Nephrology will see him while in the spital. Again, we will see what the echo shows, see what Nephrology says, continue present regimen. No need for catheterization at this point. LYNDON/ISACC Voice ID: [id number] Report ID: [id number]
--- NOTE | 2021-08-30 13:41 | ECHO ---
HEIGHT: 5 ft 8 in WEIGHT: 240 lb 9 oz DATE OF STUDY: 08/30/[address]: Colton Gonzalez MD 2-DIMENSIONAL: YES M.MODE: YES DOPPLER: YES COLOR FLOW: YES TDS: NO PORTABLE: NO DEFINITY: NO BUBBLE STUDY: NO DIAGNOSIS: CHEST PAIN, CONGESTIVE HEART FAILURE CARDIAC HISTORY: CATHERIZATION:YES SURGERY: YES PROSTHETIC VALVE: NO PACEMAKER: YES MEASUREMENTS (cm) DIASTOLIC (NORMALS) SYSTOLIC (NORMALS) IVSd 1.4 (0.6-1.2) LA Diam 4.1 (1.9-4.0) LVEF 55-60% LVIDd 3.7 (3.5-5.7) LVIDs 2.7 (2.0-3.5) %FS 26% LVPWd 1.5 (0.6-1.2) Ao Diam 2.5 (2.0-3.7) 2 DIMENSIONAL ASSESSMENT: RIGHT ATRIUM: NORMAL LEFT ATRIUM: NORMAL RIGHT VENTRICLE: PACEMAKER WIRE LEFT VENTRICLE: NORMAL TRICUSPID VALVE: MITRAL VALVE: PULMONIC VALVE: NORMAL AORTIC VALVE: NORMAL PERICARDIAL EFFUSION: NONE AORTIC ROOT: NORMAL LEFT VENTRICULAR WALL MOTION: NORMAL DOPPLER/COLOR FLOW: SEE BELOW COMMENTS: NORMAL LEFT VENTRICULAR EJECTION FRACTION 55-60%. NORMAL WALL MOTION. MILD TRICUSPID AND MITRAL REGURGITATION. TECHNOLOGIST: Ria RICHARDS
[2021-08-30 16:06] VITALS: BP 143/60; TEMP 99
--- NOTE | 2021-08-30 16:31 | P.DS ---
Admission Date: 08/29/21 Discharge Date: 08/30/21 Disposition: ROUTINE DISCHARGE Discharge Condition: FAIR Reason for Admission: Chest pain Consultations: Cardiology - Problems (1) Chest pain Current Visit: Yes Status: Acute (2) A-fib Current Visit: Yes Status: Chronic Qualifiers: Atrial fibrillation type: unspecified chronic Qualified Code(s): I48.20 - Chronic atrial fibrillation, unspecified; I48.2 - Chronic atrial fibrillation (3) CHF (congestive heart failure) Current Visit: Yes Status: Chronic Qualifiers: Heart failure type: unspecified Heart failure chronicity: chronic Qualified Code(s): I50.9 - Heart failure, unspecified (4) Chronic kidney disease, stage III (moderate) Current Visit: Yes Status: Chronic Qualifiers: Chronic kidney disease stage 3 subtype: stage 3b (GFR 30-44) Qualified Code(s): N18.32 - Chronic kidney disease, stage 3b (5) Diabetes mellitus type 2, insulin dependent Current Visit: Yes Status: Chronic (6) Pacemaker Current Visit: Yes Status: Chronic (7) Renal cancer Current Visit: Yes Status: Chronic Qualifiers: Laterality: unspecified laterality Qualified Code(s): C64.9 - Malignant neoplasm of unspecified kidney, except renal pelvis (8) COPD (chronic obstructive pulmonary disease) Current Visit: No Status: Chronic Qualifiers: COPD type: unspecified COPD Qualified Code(s): J44.9 - Chronic obstructive pulmonary disease, unspecified Brief History of Present Illness: Patient is a 76-year-old male with CHF, COPD, hypertension, CAD, stage II renal cancer, stage III chronic kidney disease, type 2 diabetes mellitus insulin-dependent, and A. fib (on xarelto) who presented to the ED with complaints of chest pain. He reported chest pain after being outside and his pacemaker ended up firing. He describes the chest pain as pressure, sharp, stabbing in the left side of his chest and it radiates to his left arm and leg, associated with mild shortness of breath, nausea, and weakness. Patient's finish patcher is Dr. Manrique. Patient reports he is not undergoing treatment for his stage II renal cancer and is a DNR. Patient reports this is his third pacemaker. In the ED, labs were significant for creatinine 3.57, GFR 17, BUN 66, proBNP 1173, troponin negative at 14. Chest x-ray showed no acute cardiopulmonary disease or significant change compared to previous chest x-ray. EKG showed atrial paced rhythm with prolonged AV conduction but no ST abnormalities. Patient was given morphine, Zofran, and Lasix in the ED. patient placed under observation for ACS rule out. Hospital Course: Patient's troponin trended negative. He was chest pain-free during the hospital stay. Patient was seen and evaluated by cardiology-Dr. Gonzalez who recommended an echocardiogram. Echocardiogram done was unremarkable. ACS has been ruled out, patient is asymptomatic. He is on anticoagulation with Xarelto. He also endorsed taking baby aspirin daily. Lipid profile within normal limits. Patient deemed stable for discharge per Dr. Gonzalez and he is discharged with no change in home medications. Vital Signs/Physical Exam: Temp Pulse Resp BP Pulse Ox 99.0 F 64 16 143/60 H 94 08/30/21 16:00 08/30/21 16:00 08/30/21 16:00 08/30/21 16:00 08/30/21 16:00 General: Alert, In no apparent distress, Oriented x3 HEENT: Mucous membr. moist/pink, Sclerae nonicteric Neck: Supple, JVD not distended Respiratory: Clear to auscultation bilaterally, Normal air movement Cardiovascular: No edema, Regular rate/rhythm, Normal S1 S2 Gastrointestinal: Soft and benign, Non-distended Musculoskeletal: No swelling Integumentary: No cyanosis Neurological: Other (No focal motor deficit.) Laboratory Data at Discharge: WBC 4.90 K/uL (4.3-10.9) D 08/30/21 05:11 Hgb 11.1 g/dL (13.6-17.9) L 08/30/21 05:11 Hct 31.7 % (39.6-49.0) L 08/30/21 05:11 Plt Count 194 K/uL (152-406) 08/30/21 05:11 PT 17.2 SECONDS (9.5-12.5) H 08/29/21 18:30 INR 1.55 08/29/21 18:30 Sodium 135 mmol/L (136-145) L 08/30/21 05:11 Potassium 4.3 mmol/L (3.5-5.1) 08/30/21 05:11 BUN 70 mg/dL (7-18) H 08/30/21 05:11 Creatinine 3.56 mg/dL (0.55-1.3) H 08/30/21 05:11 Glucose 211 mg/dL (74-106) H 08/30/21 05:11 Magnesium 1.9 mg/dL (1.8-2.4) 08/29/21 18:30 Total Bilirubin 0.6 mg/dL (0.2-1.0) 08/30/21 05:11 AST 13 U/L (15-37) L 08/30/21 05:11 ALT 13 U/L (12-78) 08/30/21 05:11 Alkaline Phosphatase 139 U/L (45-117) H 08/30/21 05:11 Triglycerides 329 mg/dL (<150) H 08/30/21 05:11 Cholesterol 142 mg/dL (<200) 08/30/21 05:11 HDL Cholesterol 33 mg/dL (40-60) L 08/30/21 05:11 Cholesterol/HDL Ratio 4.30 08/30/21 05:11 Lipase 165 U/L (73-393) 08/29/21 18:30 Home Medications: Allopurinol 1 tab PO DAILY 08/30/21 Aspirin [Aspirin EC 81 MG] 81 mg PO DAILY #30 tablet. 08/30/21 Atorvastatin Calcium 1 tab PO DAILY 08/30/21 Escitalopram Oxalate [Lexapro] 1 tab PO DAILY 08/30/21 Gabapentin 1 cap PO TID 08/30/21 Hydrocodone Bit/Acetaminophen [Hydrocodon-Acetaminoph 7.5-325] 1 tab PO Q6H 08/30/21 Hydroxyzine HCl [Atarax] 1 tab PO TID 08/30/21 Insulin Aspart [Insulin Aspart Flexpen] 40 unit SQ DAILY 08/30/21 Insulin Glargine,Hum.rec.anlog [Lantus Solostar] 55 units SQ DAILY 08/30/21 Metoprolol Tartrate 1 tab PO DAILY 08/30/21 Potassium Chloride 1 tab PO BID 08/30/21 Rivaroxaban [Xarelto*] 10 mg PO DAILY tablet 08/30/21 Ropinirole HCl 1 tab PO BEDTIME 08/30/21 Tamsulosin [Flomax*] 1 cap PO DAILY 08/30/21 Timolol Maleate 0.25% Opth Edith 5 Ml 1 gtt OPTH SEECOM 08/30/21 Tizanidine [Zanaflex*] 0.5 tab PO BEDTIME 08/30/21 New Medications: Aspirin [Aspirin EC 81 MG] 81 mg PO DAILY #30 tablet. Diet: AHA Activity: Ad dhiraj Followup: GALEN AARON [Primary Care Provider] - 1-2 Weeks
== END 2021-08-30 18:15 | disposition home or self-care (01) ==
LOC: ER 17:40 → ERHOLD 20:23 → 4TH 22:44
PROVIDERS: ADMIT Internal Medicine; ATTEND Internal Medicine
DX: R07.89 Other chest pain (principal); I48.91 Unspecified atrial fibrillation; I13.0 Hypertensive heart and chronic kidney disease with heart failure and stage 1 through stage 4 chronic kidney disease, or unspecified chronic kidney disease; I50.9 Heart failure, unspecified; N18.32 Chronic kidney disease, stage 3b; E11.22 Type 2 diabetes mellitus with diabetic chronic kidney disease; R06.02 Shortness of breath; I25.10 Atherosclerotic heart disease of native coronary artery without angina pectoris; J44.9 Chronic obstructive pulmonary disease, unspecified; C64.9 Malignant neoplasm of unspecified kidney, except renal pelvis; K21.9 Gastro-esophageal reflux disease without esophagitis; E66.9 Obesity, unspecified; Z68.36 Body mass index [BMI] 36.0-36.9, adult; Z66 Do not resuscitate; Z95.810 Presence of automatic (implantable) cardiac defibrillator; Z86.711 Personal history of pulmonary embolism; Z79.01 Long term (current) use of anticoagulants; Z79.4 Long term (current) use of insulin; Z95.1 Presence of aortocoronary bypass graft; Z90.49 Acquired absence of other specified parts of digestive tract; Z20.822 Contact with and (suspected) exposure to COVID-19; Z82.49 Family history of ischemic heart disease and other diseases of the circulatory system; Z83.3 Family history of diabetes mellitus; Z80.9 Family history of malignant neoplasm, unspecified
CPT/HCPCS: 36415; 71045; 80048; 80053; 80061; 80076; 81003; 82947; 83690; 83735; 83880; 84439; 84443; 84484; 85025; 85610; 93005; 93306; 96374; 96375; 99285; J1940; J2405; U0003

== ENCOUNTER 2022-03-18 08:56 | Emergency (ER) | payer MEDICARE ==
--- OUTSIDE RECORDS SUMMARY | 2022-03-18 08:59 | XMS REPORT | Continuity of Care Document ---
:1945 Author Organization [facility] t Address [address] [place] [address] Care Team Providers Name Role Phone AMARI CRABTREE Attending Clinician Unavailable AMARI CRABTREE Attending Clinician Unavailable Payers Payer Name Policy Type Policy Number Effective Date Expiration Date S ource BCBSTX MEDICARE [id number] 2021 ADVANTAGE HMO 00:00:00 [place] [id number] 2021 SUPPLEMENT 00:00:00 Problems Condition Condition Condition Status Onset Resolution Last Treating Co mments Source Name Details Category Date Date Treatment Clinician Date Post-opera Post-opera Disease Active [facility]ive state tive state [facility] 00:00: 00 End stage End stage Disease Active [facility]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 Social History Social Habit Start Date Stop Date Quantity Comments Source Tobacco use and 2021-09-20 2021-09-20 Smokeless tobacco [facility] exposure 00:00:00 00:00:00 non-user Sex Assigned At [birth year] [facility] 00:00:00 00:00:00 Smoking Status Start Date Stop Date Source Never smoked tobacco [facility] Medications Ordered Filled Start Stop Current Ordering Indication Dosage Frequency Signature Comments Components Source Medication Medication Date Date Medication? Clinician (SIG) Name Name rivaroxaban Yes 1{tbl} QD Take 1 [facility] (Xarelto) 4-04 tablet by [facility] 10 MG 12:38: mouth 1 tablet 23 (one) time each day. rivaroxaban Yes 1{tbl} QD Take 1 [facility] (Xarelto) 4-04 tablet by Healt [facility] 10 MG 12:38: mouth 1 tablet 23 (one) time each day. rivaroxaban Yes 1{tbl} QD Take 1 [facility] (Xarelto) 4-04 tablet by Healt h 10 MG 12:38: mouth 1 tablet 23 (one) time each day. Procedures This patient has no known procedures. Encounters Start End Encounter Admission Attending Care Care Encounter Source Date/Time Date/Time Type Type Clinicians Facility Department ID 2022-02-17 Outpatient [facility] [id number] [place] 05:32:26 [id number] [facility] 2022-02-11 Outpatient [facility] [id number] [place] 09:35:42 [id number] [facility] 2022-01-11 Outpatient [facility] [id number] [place] 10:02:50 [id number] [facility] 2022-01-10 Outpatient [facility] [id number] [place] 13:46:16 [id number] [facility] 2021-12-22 Outpatient LEYDA, [facility] [id number] [place] 11:24:44 AMARI [id number] [facility] 2021-11-23 Outpatient LEYDA, [facility] [id number] [place] 08:40:17 AMARI [id number] [facility] 2021-11-22 Outpatient LEYDA, [facility] [id number] [place] 12:36:36 AMARI [id number] [facility] 2021-11-18 Outpatient [facility] [id number] [place] 07:33:50 [id number] [facility] 2021-11-03 Outpatient [facility] [id number] [place] 12:20:31 [id number] [facility] 2021-11-02 Outpatient [facility] [id number] [place] 05:53:35 [id number] [facility] 2021-10-29 Outpatient [facility] [id number] [place] 08:00:04 [id number] [facility] 2021-10-28 Outpatient [facility] [id number] [place] 20:13:53 [id number] [facility] 2021-10-27 Outpatient LEYDA [facility] [id number] [place] 13:14:04 AMARI [id number] [facility] 2021-09-29 Outpatient [facility] [id number] [place] 08:27:12 [id number] [facility] 2021-09-20 Outpatient LEYDA, [facility] [id number] [place] 10:10:22 AMARI [id number] [facility] 2021-09-17 Outpatient [facility] [id number] [place] 06:32:43 [id number] [facility] 2021-09-15 Outpatient LEYDA, [facility] [id number] [place] 13:04:22 AMARI [id number] [facility] 2021-09-14 Outpatient LEYDA, [facility] [id number] MD 16:03:24 AMARI [id number] [facility] 2021-09-10 Outpatient LEYDA, [facility] [id number] MD 12:51:43 AMARI [id number] [facility] 2022-02-23 2022-02-23 Outpatient LEYDA, [facility] [id number] [place] 09:30:00 09:30:00 [facility] 2022-01-17 2022-01-18 Outpatient [facility] [id number] [place] 10:00:00 08:39:08 [facility] 2022-01-17 2022-01-18 [id number] [place] 09:30:00 08:38:40 Visit Amari MARIE [id number] [facility] [id number] [facility] [id number] 2021-11-22 2021-11-22 Office Leyda [facility] [id number] [place] 09:15:00 09:30:00 Visit Amari MARIE [id number] [facility] [id number] CLINIC [id number] 2021-11-05 2021-11-05 Outpatient LEYDA [id number] 08:22:00 15:45:00 AMARI [facility] 2021-11-05 2021-11-05 Outpatient LEYDA, [facility] [id number] [place] 12:00:00 12:00:00 [facility] 2021-09-20 2021-09-20 Office Leyda [facility] [id number] [place] 09:45:00 10:00:00 Visit Amari MARIE [id number] Marco [facility] [id number] [facility] [id number] Results This patient has no known results.
--- NOTE | 2022-03-18 09:55 | RAD REPORT ---
EXAM DESCRIPTION: Erica Single View03/18/2022 9:37 am CLINICAL HISTORY: Hypertension COMPARISON: August 2021 FINDINGS: The lungs appear clear of acute infiltrate. The heart is mildly enlarged. Pacemaker leads in place IMPRESSION: No acute abnormalities displayed
[2022-03-18 09:57] LABS: Absolute Lymphocytes (CBC) 1.3 K/uL (0.7-4.9); Lymphocytes % 33.7 % (15.3-44.8); MCV 89.1 fL (80-100); MPV 7.8 fL (7.6-11.3); RBC Red Blood Cell Count 4.15 M/uL (4.33-5.43)
[2022-03-18 10:04] LABS: SARS-CoV-2 Antigen Rapid Res Negative (Negative)
[2022-03-18 10:12] LABS: Potassium 4.5 mmol/L (3.5-5.1); Troponin High Sensitivity 12.5 pg/mL (<58.9)
--- NOTE | 2022-03-18 12:34 | ER ---
Nurse's Notes [facility] Name: Eloy Gonzalez Age: 76 yrs Sex: Male : 1945 Arrival Date: 03/18/2022 Time: 09:01 Bed 2 Private MD: Beni Flood E Diagnosis: Hypotension, unspecified;Weakness Presentation: 03/18 09:13 Chief complaint: Patient states: Dialysis yesterday didn't feel good went home woke up db and still didn't feel good. "BP keeps bottoming out". Chest pressure with inspiration. Coronavirus screen: Vaccine status: Patient reports receiving the 2nd dose of the covid vaccine. Client denies travel out of the [place] in the last 14 days. At this time, the client does not indicate any symptoms associated with coronavirus-19. Ebola Screen: Patient negative for fever greater than or equal to 101.5 degrees Fahrenheit, and additional compatible Ebola Virus Disease symptoms Patient denies exposure to infectious person. Patient denies travel to an Ebola-affected area in the 21 days before illness onset. No symptoms or risks identified at this time. Initial Sepsis Screen: Does the patient meet any 2 criteria? No. Patient's initial sepsis screen is negative. Does the patient have a suspected source of infection? No. Patient's initial sepsis screen is negative. Risk Assessment: Do you want to hurt yourself or someone else? Patient reports no desire to harm self or others. 09:13 Method Of Arrival: Ambulatory db 09:13 Acuity: HAZEL 2 db 09:13 Onset of symptoms was March 17, 2022. db Triage Assessment: 09:16 General: Appears in no apparent distress. comfortable, Behavior is calm, cooperative, db appropriate for age, quiet. Pain: Pain currently is 5 out of 10 on a pain scale. Historical: - Allergies: 09:16 No Known Allergies; db - Home Meds: 10:15 allopurinol 100 mg oral tab 1 tab once daily [Active]; atorvastatin 20 mg oral tab 1 jl7 tab once daily [Active]; gabapentin 300 mg oral cap 1 cap 3 times per day [Active]; hydrocodone-acetaminophen 7.5-325 mg oral tab 1 tab every 6 hours [Active]; insulin aspart U-100 100 unit/mL subcutaneous crtg [Active]; Lantus U-100 Insulin 100 unit/mL Sub-Q crtg 8 unit twice a day [Active]; levothyroxine 125 mcg tab 1 tab once daily [Active]; midodrine 10 mg oral tab [Active]; Xarelto 10 mg oral tab 1 tab once daily [Active]; pantoprazole 40 mg oral TbEC 1 tab once daily [Active]; ranolazine 500 mg oral Tb12 1 tab 2 times per day [Active]; ropinirole 1 mg oral tab 1 tab nightly [Active]; tizanidine 4 mg oral tab .5 tab nightly [Active]; - PMHx: 09:16 Atrial fibrillation; Cancer, renal stage 2; Congestive heart failure; COPD; diabetes db mellitus; GERD; pacemaker/defibrillator; End stage renal disease; - PSHx: 09:16 Appendectomy; pacemaker; back surgery; bypass; Cholecystectomy; hernia repair; neck db surgery; - Immunization history:: Adult Immunizations unknown, Client reports receiving the 2nd dose of the Covid vaccine. - Social history:: Smoking status: Patient denies any tobacco usage or history of. Patient/guardian denies using alcohol, street drugs, IV drugs, tobacco products. Screenin:18 Abuse screen: Denies threats or abuse. Denies injuries from another. Nutritional db screening: No deficits noted. Tuberculosis screening: No symptoms or risk factors identified. Fall Risk None identified. No fall in past 12 months (0 pts). No secondary diagnosis (0 pts). IV access (20 points). Ambulatory Aid- None/Bed Rest/Nurse Assist (0 pts). Gait- Normal/Bed Rest/Wheelchair (0 pts) Mental Status- Oriented to own ability (0 pts). Total Nelson Fall Scale indicates No Risk (0-24 pts). Exposure risk/Travel Screening: None identified. Assessment: 09:18 General: Appears in no apparent distress. Pain: Complains of pain in chest. Neuro: No db deficits noted. Cardiovascular: Reports chest pain, Chest pain. Respiratory: Reports shortness of breath on exertion. GI: No deficits noted. : No deficits noted. EENT: No deficits noted. Derm: No deficits noted. Musculoskeletal: No deficits noted. 10:15 Reassessment: Patient appears in no apparent distress at this time. No changes from jl7 previously documented assessment. Patient and/or family updated on plan of care and expected duration. Pain level reassessed. Patient is alert, oriented x 3, equal unlabored respirations, skin warm/dry/pink. 11:15 Reassessment: Patient appears in no apparent distress at this time. No changes from donovan previously documented assessment. Patient and/or family updated on plan of care and expected duration. Pain level reassessed. Patient is alert, oriented x 3, equal unlabored respirations, skin warm/dry/pink. Vital Signs: 09:13 BP 133 / 74; Pulse 84; Resp 18; Temp 97.5; Pulse Ox 99% ; Weight 104.33 kg; Height 5 db ft. 8 in. (172.72 cm); 10:27 BP 146 / 77; Pulse 60; Resp 15; Pulse Ox 97% ; jl7 11:15 BP 126 / 64; Pulse 65; Resp 14; Pulse Ox 100% ; jl7 13:01 BP 134 / 75; Pulse 69; Resp 16; Pulse Ox 98% on R/A; db 09:13 Body Mass Index 34.97 (104.33 kg, 172.72 cm) db ED Course: 09:01 Patient arrived in ED. am2 09:01 Beni Flood MD is Private Physician. am2 09:06 Al Dorman MD is Attending Physician. kdr 09:12 Masha Barker, PRECIOUS is Primary Nurse. db 09:16 Triage completed. db 09:16 Arm band placed on right wrist. Patient placed in an exam room, on cardiac care unit nurse, on db pulse oximetry. 09:18 Patient has correct armband on for positive identification. Bed in low position. Call db light in reach. Side rails up X 1. Client placed on continuous cardiac and pulse oximetry monitoring. NIBP monitoring applied. monitoring analyst on. Pulse ox on. NIBP on. Warm blanket given. 09:49 Initial lab(s) drawn, by me, sent to lab. EKG done, by ED staff, reviewed by Al Dorman MD COVID swab sent to lab. Inserted saline lock: 20 gauge in right antecubital area, using aseptic technique. Blood collected. 10:53 Basic Metabolic Panel Sent. db 10:53 CBC with Diff Sent. db 10:53 Troponin HS Sent. db 11:15 No provider procedures requiring assistance completed. jl7 12:20 SARS RAPID Sent. jl7 12:32 Beni Flood MD is Referral Physician. kdr 13:02 IV discontinued, intact, bleeding controlled, No redness/swelling at site. Pressure db dressing applied. Administered Medications: No medications were administered Medication: 09:18 VIS not applicable for this client. db Outcome: 12:33 Discharge ordered by . kdr 13:01 Discharged to home with family. db 13:01 Condition: stable 13:01 Discharge instructions given to patient, Instructed on discharge instructions, follow up and referral plans. 13:04 Patient left the ED. db Signatures: Al Dorman MD MD kdr Bismark Castro RN RN jl7 Yudi Cervantes am2 Masha Barker, RN RN db Corrections: (The following items were deleted from the chart) 09:23 09:18 Patient has correct armband on for positive identification. Bed in low position. db Call light in reach. Side rails up X 1. db 09:23 09:18 Client placed on continuous cardiac and pulse oximetry monitoring. NIBP db monitoring applied. monitoring analyst on. Pulse ox on. NIBP on. db 09:23 09:18 Patient is placed in psych hold db db 09:24 09:18 Patient is placed in psych hold db db 09:24 09:18 Patient is placed in psych hold db db 09:24 09:18 Patient is placed in psych hold db db 09:24 09:18 Patient is placed in psych hold db db 09:24 09:18 Patient is placed in psych hold db db 11:15 09:18 Reassessment: Patient appears in no apparent distress at this time. No changes jl7 from previously documented assessment. Patient and/or family updated on plan of care and expected duration. Pain level reassessed. Patient is alert, oriented x 3, equal unlabored respirations, skin warm/dry/pink. db
--- NOTE | 2022-03-18 12:34 | EDPHYS ---
Physician Documentation [facility] Name: Eloy Gonzalez Age: 76 yrs Sex: Male : 1945 Arrival Date: 03/18/2022 Time: 09:01 Bed 2 Private MD: Beni Flood E ED Physician Al Dorman HPI: 03/18 15:29 This 76 yrs old Male presents to ER via Ambulatory with complaints of Blood Pressure kdr Problem - low, Doesn't Feel Right. 15:29 Patient reports to has not been feeling well. Patient had dialysis yesterday and was kdr not feeling quite up to his normal self afterwards. He went home and tried to nap and when he awoke, he still was feeling poorly. He also has had episodes where and his blood pressure is low, possibly in the neighborhood of about 90 systolic. Patient has been otherwise stable without focal complaint. Onset: The symptoms/episode began/occurred gradually, 2 day(s) ago. Severity of symptoms: At their worst the symptoms were mild in the emergency department the symptoms are unchanged. The patient has not experienced similar symptoms in the past. The patient has not recently seen a physician. Historical: - Allergies: 09:16 No Known Allergies; db - Home Meds: 10:15 allopurinol 100 mg oral tab 1 tab once daily [Active]; atorvastatin 20 mg oral tab 1 jl7 tab once daily [Active]; gabapentin 300 mg oral cap 1 cap 3 times per day [Active]; hydrocodone-acetaminophen 7.5-325 mg oral tab 1 tab every 6 hours [Active]; insulin aspart U-100 100 unit/mL subcutaneous crtg [Active]; Lantus U-100 Insulin 100 unit/mL Sub-Q crtg 8 unit twice a day [Active]; levothyroxine 125 mcg tab 1 tab once daily [Active]; midodrine 10 mg oral tab [Active]; Xarelto 10 mg oral tab 1 tab once daily [Active]; pantoprazole 40 mg oral TbEC 1 tab once daily [Active]; ranolazine 500 mg oral Tb12 1 tab 2 times per day [Active]; ropinirole 1 mg oral tab 1 tab nightly [Active]; tizanidine 4 mg oral tab .5 tab nightly [Active]; - PMHx: 09:16 Atrial fibrillation; Cancer, renal stage 2; Congestive heart failure; COPD; diabetes db mellitus; GERD; pacemaker/defibrillator; End stage renal disease; - PSHx: 09:16 Appendectomy; pacemaker; back surgery; bypass; Cholecystectomy; hernia repair; neck db surgery; - Immunization history:: Adult Immunizations unknown, Client reports receiving the 2nd dose of the Covid vaccine. - Social history:: Smoking status: Patient denies any tobacco usage or history of. Patient/guardian denies using alcohol, street drugs, IV drugs, tobacco products. ROS: 15:29 Constitutional: Negative for fever, chills, and weight loss, Eyes: Negative for injury, kdr pain, redness, and discharge, Neck: Negative for injury, pain, and swelling, Cardiovascular: Negative for chest pain, palpitations, and edema, Respiratory: Negative for shortness of breath, cough, wheezing, and pleuritic chest pain, Abdomen/GI: Negative for abdominal pain, nausea, vomiting, diarrhea, and constipation, Back: Negative for injury and pain, MS/Extremity: Negative for injury and deformity, Skin: Negative for injury, rash, and discoloration, Neuro: Negative for headache, weakness, numbness, tingling, and seizure activity. Psych: Negative for depression, anxiety, suicide ideation, homicidal ideation, and hallucinations, Allergy/Immunology: Negative for hives, rash, and allergies, Endocrine: Negative for neck swelling, polydipsia, polyuria, polyphagia, and marked weight changes, Hematologic/Lymphatic: Negative for swollen nodes, abnormal bleeding, and unusual bruising. Exam: 15:29 Constitutional: This is a well developed, well nourished patient who is awake, alert, kdr and in no acute distress. Head/Face: Normocephalic, atraumatic. Eyes: Pupils equal round and reactive to light, extra-ocular motions intact. Lids and lashes normal. Conjunctiva and sclera are non-icteric and not injected. Cornea within normal limits. Periorbital areas with no swelling, redness, or edema. Neck: Trachea midline, no thyromegaly or masses palpated, and no cervical lymphadenopathy. Supple, full range of motion without nuchal rigidity, or vertebral point tenderness. No Meningismus. Chest/axilla: Normal chest wall appearance and motion. Nontender with no deformity. No lesions are appreciated. Cardiovascular: Regular rate and rhythm with a normal S1 and S2. No gallops, murmurs, or rubs. Normal PMI, no JVD. No pulse deficits. Respiratory: Lungs have equal breath sounds bilaterally, clear to auscultation and percussion. No rales, rhonchi or wheezes noted. No increased work of breathing, no retractions or nasal flaring. Abdomen/GI: Soft, non-tender, with normal bowel sounds. No distension or tympany. No guarding or rebound. No evidence of tenderness throughout. Back: No spinal tenderness. No costovertebral tenderness. Full range of motion. Skin: Warm, dry with normal turgor. Normal color with no rashes, no lesions, and no evidence of cellulitis. MS/ Extremity: Pulses equal, no cyanosis. Neurovascular intact. Full, normal range of motion. Neuro: Awake and alert, GCS 15, oriented to person, place, time, and situation. Cranial nerves II-XII grossly intact. Motor strength 5/5 in all extremities. Sensory grossly intact. Cerebellar exam normal. Normal gait. Psych: Awake, alert, with orientation to person, place and time. Behavior, mood, and affect are within normal limits. Vital Signs: 09:13 BP 133 / 74; Pulse 84; Resp 18; Temp 97.5; Pulse Ox 99% ; Weight 104.33 kg; Height 5 db ft. 8 in. (172.72 cm); 10:27 BP 146 / 77; Pulse 60; Resp 15; Pulse Ox 97% ; jl7 11:15 BP 126 / 64; Pulse 65; Resp 14; Pulse Ox 100% ; jl7 13:01 BP 134 / 75; Pulse 69; Resp 16; Pulse Ox 98% on R/A; db 09:13 Body Mass Index 34.97 (104.33 kg, 172.72 cm) db MDM: 12:33 Patient medically screened. kdr 15:29 Data reviewed: vital signs, nurses notes, lab test result(s), radiologic studies. kdr Counseling: I had a detailed discussion with the patient and/or guardian regarding: the historical points, exam findings, and any diagnostic results supporting the discharge/admit diagnosis, lab results, radiology results, the need for outpatient follow up. 03/18 09:06 Order name: Basic Metabolic Panel kdr 03/18 09:06 Order name: CBC with Diff kdr 03/18 09:06 Order name: Troponin HS kdr 03/18 09:27 Order name: SARS RAPID eb 03/18 09:58 Order name: CBC with Automated Diff; Complete Time: 10:55 EDMS 03/18 10:04 Order name: SARS-COV-2 Antigen Rapid; Complete Time: 10:55 EDMS 03/18 09:06 Order name: XRAY Chest (1 view) kdr 03/18 09:06 Order name: EKG; Complete Time: 09:07 kdr 03/18 09:06 Order name: Cardiac monitoring; Complete Time: 09:49 kdr 03/18 09:06 Order name: EKG - Nurse/Tech; Complete Time: 09:49 kdr 03/18 09:06 Order name: IV Saline Lock; Complete Time: 09:49 kdr 03/18 09:56 Order name: RAD; Complete Time: 10:55 EDMS 03/18 10:12 Order name: Basic Metabolic Panel; Complete Time: 10:55 EDMS 03/18 10:12 Order name: Troponin High Sensitivity; Complete Time: 10:55 EDMS 03/18 09:06 Order name: Labs collected and sent; Complete Time: 09:49 kdr 03/18 09:06 Order name: O2 Per Protocol; Complete Time: 09:49 kdr 03/18 09:06 Order name: O2 Sat Monitoring; Complete Time: 09:49 kdr Administered Medications: No medications were administered Disposition Summary: 03/18/22 12:33 Discharge Ordered Location: Home kdr Problem: new kdr Symptoms: have improved kdr Condition: Stable kdr Diagnosis - Hypotension, unspecified kdr - Weakness kdr Followup: kdr - With: Beni Flood MD - When: 2 - 3 days - Reason: If symptoms return, Further diagnostic work-up, Recheck today's complaints, Continuance of care, Re-evaluation by your physician Discharge Instructions: - Discharge Summary Sheet kdr - Hypotension kdr - Fatigue kdr - Weakness, [id number] kdr Forms: - Medication Reconciliation Form kdr - Thank You Letter kdr Signatures: Dispatcher [employer] Al Beth MD MD kdr Bismark Castro RN RN jl7 Masha Barker, RN RN db
[2022-03-19 03:07] VITALS: TEMP 97.5
[2022-03-19 03:10] VITALS: BP 134/75; O2SAT 98
--- NOTE | 2022-03-20 07:47 | EKG ---
Test Date: 2022-03-18 Test Time: 09:24:58 Slate Handler: VALENTINA MEASUREMENT RESULTS: Intervals: Rate: 63 [place]: QRSD: 94 QT: 422 QTc: 431 [place]: P: [place]: QRS: 68 T: 90 INTERPRETIVE STATEMENTS: Electronic atrial pacemaker Cannot rule out Anterior infarct, age undetermined Abnormal ECG Compared to ECG 08/29/2021 18:05:18 Ventricular-paced complex(es) or rhythm no longer present Myocardial infarct finding still present Electronically Signed On 03-20-22 07:44:32 CDT by Colton Gonzalez
== END 2022-03-18 13:04 | disposition home or self-care (01) ==
LOC: ER 08:56
DX: I95.9 Hypotension, unspecified (principal); R53.1 Weakness; E11.22 Type 2 diabetes mellitus with diabetic chronic kidney disease; N18.6 End stage renal disease; Z99.2 Dependence on renal dialysis; Z20.822 Contact with and (suspected) exposure to COVID-19; Z95.0 Presence of cardiac pacemaker; Z79.4 Long term (current) use of insulin
CPT/HCPCS: 36415; 71045; 80048; 84484; 85025; 87811; 93005; 99284